=== PATIENT | female | born 1955 | race Caucasian/White ===

== ENCOUNTER 2022-08-08 14:23 | Inpatient (IN) | payer MEDICARE, OTHER ==
[~2022-08-08] VITALS: Ht 125.3 cm; Wt 88.8 kg
[~2022-08-08 14:23] MED LIST: ASPI-1444 PO; ATOR20TA65 PO; BRIM10DR10 OU; CARB200T6 PO; CHOL500045 PO; CYCL5TAB PO; LOSA-382 PO; METO-391 PO; NETA2.5D OU; PREG75 PO; TIMO5DRO7 OU
[2022-08-08] MEDS ORDERED: SODIUM CHLORIDE 0.9% 1,000 ML IV ONE (14:30)
[2022-08-08] MEDS ORDERED: DIAZEPAM 5 MG TABLET ONE (14:53)
[2022-08-08] MEDS ORDERED: ASPIRIN 81 MG CHEWABLE TABLET ONE (14:54)
[2022-08-08] MEDS ORDERED: DiphenhydrAMINE HCL 50 MG CAPSULE ONE (14:54)
[2022-08-08 15:36] LABS: GLUCOMETER DEV NAME(LOC) SDS.; GLUCOSE,POINT OF CARE 82 MG/DL (70-110)
[2022-08-08] MEDS ORDERED: DIAZEPAM 5 MG TABLET PO ONE (16:30)
[2022-08-08] MEDS ORDERED: DiphenhydrAMINE HCL 50 MG CAPSULE PO ONE (16:30)
[2022-08-08] MEDS ORDERED: ASPIRIN 81 MG CHEWABLE TABLET PO ONE (16:30)
[2022-08-08] MEDS ORDERED: LIDOCAINE/PF 1% 30 ML VIAL ONE (17:20)
[2022-08-08] MEDS ORDERED: SODIUM BICARBONATE 50 MEQ/50 ML VIAL ONE (17:20)
[2022-08-08] MEDS ORDERED: FentaNYL CITRATE PF 100 MCG/2 ML VIAL ONE ×3 (17:20→18:13)
[2022-08-08] MEDS ORDERED: IOHEXOL 350 MG/ML 100 ML VIAL ONE ×3 (17:21→18:40)
[2022-08-08] MEDS ORDERED: HEPARIN SODIUM 1000 UNITS/NS 1,000 ML ONE (17:21)
[2022-08-08] MEDS ORDERED: MIDAZOLAM HCL 2 MG/2 ML VIAL ONE ×2 (17:34→18:13)
[2022-08-08] MEDS ORDERED: VERAPAMIL HCL 2.5 MG/ML 2 ML VIAL ONE (17:38)
[2022-08-08] MEDS ORDERED: NITROGLYCERIN 50 MG/D5% WATER 250 ML ONE (17:38)
[2022-08-08 17:54] VITALS: BP 160/72
[2022-08-08] MEDS ORDERED: HEPARIN SODIUM 2,000 UNITS in HEPARIN SODIUM 1000 UNITS/NS 1,000 ML IARTER ONE (18:15)
[2022-08-08] MEDS ORDERED: MIDAZOLAM HCL 2 MG/2 ML VIAL IVP ONE ×2 (18:15)
[2022-08-08] MEDS ORDERED: LIDOCAINE 1% 30 ML/SOD BICARB 8.4% 4 ML SQ ONE (18:15)
[2022-08-08] MEDS ORDERED: IOHEXOL 350 MG/ML 100 ML VIAL IARTER ONE (18:15)
[2022-08-08] MEDS ORDERED: FentaNYL CITRATE PF 100 MCG/2 ML VIAL IVP ONE ×2 (18:15)
[2022-08-08] MEDS ORDERED: HEPARIN SODIUM,PORCINE 5,000 UNITS/ML VIAL IVP ONE (18:30)
[2022-08-08] MEDS ORDERED: VERAPAMIL HCL 2.5 MG/ML 2 ML VIAL ICOR ONE (18:30)
[2022-08-08] MEDS ORDERED: HEPARIN SODIUM,PORCINE 1,000 UNITS/ML 10 ML VIAL IARTER ONE (18:30)
[2022-08-08] MEDS ORDERED: NITROGLYCERIN/D5W 50 MG/250 ML IV BOTTLE ICOR ONE (18:30)
[2022-08-08] MEDS ORDERED: IOHEXOL 350 MG/ML 100 ML VIAL IVP ONE (18:30)
[2022-08-08] MEDS ORDERED: NITROGLYCERIN 400 MCG/SUBLINGUAL SPRAY 4.9 GM BOTTLE SL ONE ×5 (18:35→19:00)
[2022-08-08] MEDS ORDERED: METOPROLOL TARTRATE 5 MG/5 ML VIAL ONE ×2 (18:36→18:37)
[2022-08-08] MEDS ORDERED: METOPROLOL TARTRATE 5 MG/5 ML VIAL IVP ONE ×2 (18:45)
[2022-08-08 19:01] VITALS: BP 135/69
[2022-08-08] MEDS ORDERED: BISACODYL 10 MG RECTAL RECTAL SUPPOSITORY PR PRN (20:15)
[2022-08-08] MEDS ORDERED: ZOLPIDEM TARTRATE 5 MG TABLET PO PRN (20:15)
[2022-08-08] MEDS ORDERED: ACETAMINOPHEN 325 MG TABLET PO PRN (20:15)
[2022-08-08] MEDS ORDERED: IPRATROPIUM BROMIDE 0.5 MG/2.5 ML NEB SOLUTION NEB PRN (20:15)
[2022-08-08] MEDS ORDERED: ONDANSETRON HCL 4 MG/2 ML VIAL IVP PRN (20:15)
[2022-08-08] MEDS ORDERED: MAGNESIUM HYDROXIDE SUSPENSION 30 ML UDCUP PO PRN (20:15)
[2022-08-08] MEDS ORDERED: ALBUTEROL SULFATE 2.5 MG/0.5 ML NEB SOLUTION NEB PRN (20:15)
[2022-08-08 22:00] VITALS: BP 127/55
[2022-08-08] MEDS: CarBAMazepine 200 MG TABLET PO SCH (22:59)
[2022-08-08] MEDS: CYCLOBENZAPRINE HCL 10 MG TABLET PO SCH (22:59)
[2022-08-08] MEDS: PREGABALIN 75 MG CAPSULE PO SCH (22:59)
[2022-08-08] MEDS: LOSARTAN POTASSIUM 50 MG TABLET PO SCH (22:59)
[2022-08-08] MEDS: BRIMONIDINE/TIMOLOL 0.2-0.5% 5 ML OPHTHALMIC SOLUTION OU SCH (23:00)
[2022-08-09 04:51] VITALS: BP 138/92
[2022-08-09] MEDS: PREGABALIN 75 MG CAPSULE PO SCH (07:53)
[2022-08-09] MEDS: CYCLOBENZAPRINE HCL 10 MG TABLET PO SCH (07:53)
[2022-08-09] MEDS: CarBAMazepine 200 MG TABLET PO SCH (07:54)
[2022-08-09] MEDS: LOSARTAN POTASSIUM 50 MG TABLET PO SCH (07:54)
[2022-08-09] MEDS: HEPARIN SODIUM,PORCINE 5,000 UNITS/ML VIAL SQ SCH ×2 (07:55)
[2022-08-09] MEDS ORDERED: HydrALAZINE HCL 20 MG/ML VIAL IVP ONE (08:00)
[2022-08-09] MEDS ORDERED: IOHEXOL 300 MG/ML 100 ML VIAL ICOR ONE (08:00)
[2022-08-09] MEDS ORDERED: FentaNYL CITRATE PF 100 MCG/2 ML VIAL IVP ONE (08:00)
[2022-08-09] MEDS ORDERED: MIDAZOLAM HCL 2 MG/2 ML VIAL IVP ONE (08:00)
[2022-08-09] MEDS ORDERED: HEPARIN SODIUM 1000 UNITS/NS 1,000 ML IARTER ONE (08:00)
[2022-08-09] MEDS ORDERED: SODIUM CHLORIDE 0.9% 500 ML IV ONE (08:00)
[2022-08-09] MEDS ORDERED: LIDOCAINE 1% 30 ML/SOD BICARB 8.4% 4 ML SQ ONE (08:00)
[2022-08-09 08:01] VITALS: BP 141/77
[2022-08-09] MEDS ORDERED: ASPIRIN 81 MG DR TABLET PO SCH (09:00)
[2022-08-09] MEDS ORDERED: PANTOPRAZOLE SODIUM 40 MG DR TABLET PO SCH (09:00)
[2022-08-09] MEDS: BRIMONIDINE/TIMOLOL 0.2-0.5% 5 ML OPHTHALMIC SOLUTION OU SCH (09:00)
[2022-08-09] MEDS ORDERED: METOPROLOL SUCCINATE 50 MG ER TABLET PO SCH (09:00)
[2022-08-09] MEDS ORDERED: CHOLECALCIFEROL (VIT D3) 5,000 [125 MCG] UNITS CAPSULE PO SCH (09:00)
[2022-08-09] MEDS ORDERED: [UNRECOGNIZED DRUG - OTHER] OU SCH (09:00)
[2022-08-09] MEDS ORDERED: TIMOLOL MALEATE 0.5% 5 ML OPHTHALMIC SOLUTION OU SCH ×2 (09:00)
[2022-08-09] MEDS ORDERED: ATORVASTATIN CALCIUM 20 MG TABLET PO SCH (09:00)
[2022-08-09 11:43] VITALS: BP 119/54
== END 2022-08-09 12:05 | disposition home or self-care (01) | DRG 287 ==
LOC: CATHLAB 14:23 → 5S 14:24
PROVIDERS: ADMIT Hospitalist; ATTEND Hospitalist
PROC: 4A023N7 Measurement of Cardiac Sampling and Pressure, Left Heart, Percutaneous Approach (ICD-10-PCS; principal; 2022-08-08)
PROC: B211YZZ Fluoroscopy of Multiple Coronary Arteries using Other Contrast (ICD-10-PCS; 2022-08-08)
PROC: B215YZZ Fluoroscopy of Left Heart using Other Contrast (ICD-10-PCS; 2022-08-08)
PROC: B310YZZ Fluoroscopy of Thoracic Aorta using Other Contrast (ICD-10-PCS; 2022-08-08)
DX: I25.10 Atherosclerotic heart disease of native coronary artery without angina pectoris (principal); E78.5 Hyperlipidemia, unspecified; E11.51 Type 2 diabetes mellitus with diabetic peripheral angiopathy without gangrene; I10 Essential (primary) hypertension; Z79.82 Long term (current) use of aspirin; Z79.899 Other long term (current) drug therapy; Z88.5 Allergy status to narcotic agent; R07.9 Chest pain, unspecified
CPT/HCPCS: 82962; 93005; 93567; J1644; J2250; J3010; J3490; Q9967